=== PATIENT | male | born 1995 | race Caucasian/White ===

== ENCOUNTER 2023-08-04 01:53 | Emergency (ER) | payer SELFPAY ==
[2023-08-04] MEDS: fentaNYL 50 MCG/ML SDV IV ONE (02:10)
[2023-08-04] MEDS: Sodium Chloride 0.9% 2.5 ML Syringe FLUSH PRN (02:11)
[2023-08-04] MEDS: Sodium Chloride 0.9% 10 ML Syringe FLUSH PRN (02:11)
[2023-08-04] MEDS: Midazolam 1 MG/ML 2 ML SDV IVPUSH ONE (02:21)
== END 2023-08-04 03:21 | disposition home or self-care (01) ==
LOC: MW.ED 01:53
DX: S82.842A Displaced bimalleolar fracture of left lower leg, initial encounter for closed fracture (principal); Z75.8 Other problems related to medical facilities and other health care; W01.0XXA Fall on same level from slipping, tripping and stumbling without subsequent striking against object, initial encounter
CPT/HCPCS: 27810; 73600; 73610; 99283; J3010; J3490